=== PATIENT | male | born 1985 ===

== ENCOUNTER 2017-06-25 19:00 | Emergency (ER) | payer OTHER ==
[~2017-06-25] VITALS: Ht 170.2 cm; Wt 63.5 kg
== END 2017-06-25 19:08 | disposition left against medical advice (07) ==
LOC: CED 19:00
DX: F11.10 Opioid abuse, uncomplicated (principal); F17.200 Nicotine dependence, unspecified, uncomplicated
CPT/HCPCS: 96374; 99283